=== PATIENT | female | born 2000 | race Caucasian/White ===

== ENCOUNTER 2018-06-14 20:43 | Emergency (ER) | payer OTHER ==
[~2018-06-14] VITALS: Ht 157.5 cm; Wt 58.1 kg
[2018-06-14 20:50] VITALS: BP 120/72
--- NOTE | 2018-06-14 22:09 | NUR ---
PT AMBULATED TO BED #4
--- NOTE | 2018-06-14 22:23 | NUR ---
PT C/O LOWER BACK SORE THAT HASN'T HEALED X1.5 MONTHS. PT WAS GIVEN ANTIBIOTICS BY PCP WITH NO RELIEF. REPORTS ODOR AND BLOOD. DENIES N/V/D; SKIN IS PINK/WARM/DRY; AAOX4 WITH EVEN AND STEADY GAIT; LUNGS CLEAR BL; HR EVEN AND REGULAR; PT DENIES ANY FEVER, CP, SOB, OR COUGH AT THIS TIME; PATIENT STATES PAIN OF 0/10 AT THIS TIME; VSS; PATIENT POSITIONED FOR COMFORT; HOB ELEVATED; BEDRAILS UP X2; BED DOWN. ER MD MADE AWARE OF PT STATUS. MOTHER AT BEDSIDE.
--- NOTE | 2018-06-14 22:53 | NUR ---
Dr. Christian evaluating patient at bedside.
[2018-06-14 23:35] VITALS: BP 120/72
--- NOTE | 2018-06-14 23:36 | NUR ---
Patient discharged with v/s stable. Written and verbal after care instructions given and explained. Patient verbalized understanding. Ambulatory with steady gait. All questions addressed prior to discharge. REFERRED PT TO , ADDRESS AND TELEPHONE NUMBER GIVEN TO PT.
== END 2018-06-14 23:36 | disposition home or self-care (01) ==
LOC: MED 20:43
DX: L05.91 Pilonidal cyst without abscess (principal)
CPT/HCPCS: 99281

== ENCOUNTER 2022-07-02 23:13 | Emergency (ER) | payer OTHER ==
[~2022-07-02] VITALS: Ht 157.5 cm; Wt 53.5 kg
[2022-07-02 23:20] VITALS: BP 121/66
--- NOTE | 2022-07-02 23:20 | NUR ---
to bed ambulatory
[2022-07-02] MEDS ORDERED: ACETAMINOPHEN 325 MG TAB PO ONE (23:35)
--- NOTE | 2022-07-02 23:45 | NUR ---
Patient resting in bed, A/Ox4, chest rise and fall symmetrical, no c/o pain or s/s of distress, patient on monitor.
--- NOTE | 2022-07-02 23:48 | NUR ---
ER physician assessing patient.
--- NOTE | 2022-07-02 23:54 | NUR ---
Urine collected sent to lab
[2022-07-02] MEDS ORDERED: METR-435 PO (23:57)
[2022-07-02] MEDS ORDERED: ACET-10509 PO (23:57)
[2022-07-02] MEDS ORDERED: ONDA-188 SL (23:57)
[2022-07-03 00:04] LABS: APPEARANCE,URINE CLEAR (CLEAR); BILIRUBIN,URINE NEGATIVE (NEGATIVE); BLOOD, URINE 3+ (NEGATIVE); COLOR,URINE YELLOW (YELLOW); LEUKOCYTE ESTERASE ,URINE NEGATIVE (NEGATIVE); NITRITE, URINE NEGATIVE (NEGATIVE); UGLUCOSE NEGATIVE (NEGATIVE)
[2022-07-03 00:05] LABS: RBC,URINE 20-50 /HPF (0-5); WBC,URINE 0-5 /HPF (0-5)
--- NOTE | 2022-07-03 00:05 | NUR ---
ER physician speaking with patient.
[2022-07-03 00:10] VITALS: BP 121/85
--- NOTE | 2022-07-03 00:12 | NUR ---
Note undone in ED - 07/03/22 at 0014 by [email or web address] Patient discharged with v/s stable. Written and verbal after care instructions given and explained. Patient alert, oriented and verbalized understanding of instructions. Ambulatory with steady gait. All questions addressed prior to discharge. ID band removed. Patient advised to follow up with PMD. Rx given to patient. Patient educated on indication of medication including possible reaction and side effects. Opportunity to ask questions provided and answered. Addendum: 07/03/22 at 0012 by [email or web address] Amendment undone in ED - 07/03/22 at 0014 by [email or web address] Patient discharged with v/s stable. Written and verbal after care instructions given and explained. Patient alert, oriented and verbalized understanding of instructions. Ambulatory with steady gait. All questions addressed prior to discharge. ID band removed. Patient advised to follow up with PMD. Rx given to patient. Patient educated on indication of medication including possible reaction and side effects. Opportunity to ask questions provided and answered.
== END 2022-07-03 00:14 | disposition home or self-care (01) ==
LOC: MED 23:13
DX: K52.89 Other specified noninfective gastroenteritis and colitis (principal); B96.89 Other specified bacterial agents as the cause of diseases classified elsewhere; Z90.49 Acquired absence of other specified parts of digestive tract; Z79.899 Other long term (current) drug therapy; Z79.2 Long term (current) use of antibiotics
CPT/HCPCS: 81001; 81025; 87086; 99283